=== PATIENT | female | born 1940 | race Two or more races ===

== ENCOUNTER 2025-01-26 20:34 | Emergency (ER) | payer MEDICARE, SELFPAY ==
[2025-01-26 20:37] VITALS: BMI 23.3
[2025-01-26 20:52] VITALS: BP 108/71; PULSE 96; RESP 18; TEMP 36.8; O2SAT 96
--- NOTE | 2025-01-26 21:58 | PD.EDRME ---
Rapid Medical Screening Exam RME Arrival date/time: 01/26/25 20:34 Chief Complaint: Shortness of Breath/Dyspnea Time Seen by Provider: 01/26/25 21:14 Vital signs: Vital Signs Temperature 98.2 F 01/26/25 20:52 Pulse Rate 96 01/26/25 20:52 Respiratory Rate 18 01/26/25 20:52 Blood Pressure 108/71 01/26/25 20:52 Pulse Oximetry (%) 96 01/26/25 20:52 Oxygen Delivery Method Room Air 01/26/25 20:52 Vital signs reviewed by provider: Yes RME Narrative: 84-year-old female presents to the ED with a complaint of cough, shortness of breath, weakness, malaise and fatigue. I have greeted and performed a focused initial assessment of this patient. A comprehensive ED assessment and evaluation of the patient, analysis of all test results, and completion of the medical decision making process will be conducted by additional ED providers.
--- NOTE | 2025-01-26 22:00 | XR_ITS ---
Examination: PA lateral chest 2 views TECHNIQUE: Upright PA and lateral chest 2 views Date and time: January 26, 2025 10:17 PM Comparison October 24, 2023 INDICATION: Coughing and shortness of breath this week. FINDINGS: Significant bilateral pneumonia, diffuse in the right lung and at the left base Normal heart size Prominent osteopenia IMPRESSION: Bilateral significant pneumonia
--- NOTE | 2025-01-26 22:16 | PD.EDURI ---
Upper Respiratory Inf. RME/HPI General Chief Complaint: Shortness of Breath/Dyspnea Stated Complaint: cough and sob Time Seen by Provider: 01/26/25 21:14 Arrival date/time: 01/26/25 20:34 RME / HPI RME / HPI Narrative: 84-year-old female presents to the ED with a complaint of cough, shortness of breath, weakness, malaise and fatigue. I have greeted and performed a focused initial assessment of this patient. A comprehensive ED assessment and evaluation of the patient, analysis of all test results, and completion of the medical decision making process will be conducted by additional ED providers. This section includes all my notes and documentations, including HPI, PE, and ED course. Shahzad Ricardo MD HPI: 84 y/o female with Hx of COPD presents to ED with about a week history of worsening cough, productive cough, purulent sputum, and dyspnea. No chest pain. No fever. No other complaints. ROS: All negative except as documented in HPI. Physical Exam: General: Alert and oriented. Hacking cough noted. Eyes: Conjunctivae and lids clear. ENT: No nasal congestion. Neck: Supple. Heart: RRR. Lungs: No respiratory distress. Mildly decreased air movement with wheezing and bibasilar rales. Abdomen: Soft and nontender. Skin: Warm and dry. Neuro: Alert and oriented X 3. I reviewed all diagnostic test results. My interpretation of the EKG is sinus rhythm with no acute ST?T changes. My interpretation of the chest x-ray is infiltrates. Blood tests remarkable for WBC 12.8. COVID/influenza negative. At this point, diagnoses include pneumonia. Treatment here included Tylenol with Codeine, Albuterol/Ipratroprium Duoneb, Prednisone, Rocephin, and Zithromax. Significant improvement noted. Recommend outpatient treatment. Based on my best medical judgment, made decision no further evaluation or treatment indicated at this time. Patient understands and agrees to the discharge instructions customized and printed, see below. Discharge instructions from Dr. Ricardo: --No physical exertion for 3 days to help rest the lungs. ?No smoking or exposure to smoking or pets or dust or cold or humidity. --Zithromax and cefdinir to kill the germs causing the pneumonia. --Prednisone to help decrease the swelling in the airways. -- Neb treatment every 4-6 hours for 3 days to help keep the airways open. Then as needed for cough or shortness of breath. --See a private doctor next week for recheck if not completely better. --Seek immediate medical care with worsening or with any concerns. Shahzad Ricardo MD Related Data Home Medications ?Medication ?Instructions ?Recorded ?Confirmed ergocalciferol (vitamin D2) 1,250 1 cap PO QWEEK 02/27/22 06/19/22 mcg (50,000 unit) capsule latanoprost 0.005 % eye drops 1 drp ophthalmic (eye) HS 02/27/22 06/19/22 atorvastatin 20 mg tablet 10 mg PO HS 06/19/22 06/19/22 Previous Rx's ?Medication ?Instructions ?Recorded levofloxacin 250 mg tablet 250 mg PO Q24H #10 tabs 06/22/22 promethazine-DM 6.25 mg-15 mg/5 mL 5 ml PO Q6HR PRN Cough #150 mL 06/22/22 oral syrup benzonatate 200 mg capsule 200 mg PO TID PRN cough #30 caps 06/22/24 doxycycline hyclate 100 mg capsule 100 mg PO BID #7 caps 06/22/24 hydrocodone 5 mg-acetaminophen 325 1 tab PO Q6H PRN pain #15 tabs 06/22/24 mg tablet acetaminophen 300 mg-codeine 30 mg 1 tab PO Q8H PRN pain #20 tabs 01/26/25 tablet azithromycin 500 mg tablet 500 mg PO QDAY 3 days #3 tabs 01/26/25 (Zithromax TRI-FOREIGN) cefdinir 300 mg capsule 300 mg PO BID #14 caps 01/26/25 prednisone 20 mg tablet 20 mg PO BID 3 days #6 tabs 01/26/25 Allergies Allergy/AdvReac Type Severity Reaction Status Date / Time Penicillins Allergy Severe Fatigued Verified 08/27/22 12:59 Review of Systems Review of Systems Systems Reviewed: All systems reviewed, normal except as documented Past Medical History Past Medical History CARDIAC: Positive Hypercholesterolemia RESPIRATORY: Positive Chronic Obstructive Pulmonary Disease (COPD), Bronchitis and Pneumonia GENITOURINARY: Positive Renal Disease MUSCULOSKELETAL: Positive Musculoskeletal Disorders ENT: Positive Cataracts and Glaucoma OTHER HISTORY: Positive Falls ED Exam Narrative Physical exam: Refer to HPI above Course Course Course Narrative: CXR is ordered for determining the etiology of shortness of breath. Quality Measures none Orders Category Date Time Status Bedside COVID-19 Antigen Test NOW Care 01/26/25 22:17 Active Bedside Influenza A&B Antigen Test NOW Care 01/26/25 22:17 Completed EKG (ED ONLY) *Do not use* NOW Care 01/26/25 20:40 Completed EKG (ED Only) Stat Exams 01/26/25 20:39 Ordered XR chest 2V Stat Exams 01/26/25 22:00 Completed B-Type Natriuretic Peptide Stat Lab 01/26/25 22:14 Completed CBC Stat Lab 01/26/25 22:14 Completed CMP [Comprehensive Metabolic Panel] Stat Lab 01/26/25 22:14 Completed LDH (Lactate Dehydrogenase) Stat Lab 01/26/25 22:14 Completed Lactic Acid [Lactate (Lactic Acid)] Stat Lab 01/26/25 22:14 Completed Magnesium Stat Lab 01/26/25 22:14 Completed Partial Thromboplastin Time Stat Lab 01/26/25 22:14 Completed Procalcitonin Stat Lab 01/26/25 22:14 Completed Prothrombin Time with INR Stat Lab 01/26/25 22:14 Completed RSV [Respiratory Syncytial Virus Ag] Stat Lab 01/26/25 22:00 Ordered Troponin I Stat Lab 01/26/25 22:14 Completed Urinalysis Stat Lab 01/26/25 22:00 Ordered ACETAMINOPHEN w/COD 300-30 [Tylenol w/Cod #3] Med 01/26/25 22:18 Discontinued 1 tab PO X1 ONE Albuterol/Ipratr Rt Crystal [Duoneb Rt Crystal] Med 01/26/25 22:18 Discontinued 3 ml INH X1 ONE Azithromycin Po [Zithromax PO] Med 01/26/25 23:06 Discontinued 500 mg PO X1 ONE cefTRIAXone [Rocephin] 1,000 mg Med 01/26/25 23:06 Discontinued Lidocaine 1% 20 ml [Xylocaine 1% 20 ML] 2.1 ml IM X1 predniSONE Med 01/26/25 22:18 Discontinued 40 mg PO X1 ONE Vital Signs Vital signs: Vital Signs Temperature 98.2 F 01/26/25 20:52 Pulse Rate 96 01/26/25 20:52 Respiratory Rate 18 01/26/25 20:52 Blood Pressure 108/71 01/26/25 20:52 Pulse Oximetry (%) 96 01/26/25 20:52 Oxygen Delivery Method Room Air 01/26/25 20:52 Upper Respiratory Infection MDM Narrative MDM Narrative:: Scribe Attestation: I, Preethi Pickering, am scribing for and in the presence of Dr. Ricardo. Provider Notation: Although this document has been carefully reviewed, there may still be some phonetic and other typographical errors.? These errors are purely grammatical due to imperfections in the software program and should not be construed in any way to? compromise the substance of the patient's medical care during this visit. 84 y/o female with Hx of COPD presents to ED c/o progressively worsening cough with yellow sputum x 1 day. Patient uses home oxygen and nebulizer treatment as needed. No other complaints. Patient data External records reviewed:: [facility] previous records (Reviewed prior ED records from 06/29/24. Patient was seen for Fracture of right clavicle.) Clinical information provided by:: patient Social determinants that could affect healthcare access:: none Patient has the following chronic illnesses:: Hypercholesterolemia, Chronic Obstructive Pulmonary Disease (COPD), Renal Disease, Cataracts and Glaucoma How is presenting disease/condition affected by chronic disease/condition?: exacerbated by Evaluation data The following diagnostics were reviewed and interpreted by me:: lab results, radiology exam(s) and EKG tracing(s) Lab and/or radiology exams considered but not ordered:: None Interpretation Summary: I reviewed all diagnostic test results. My interpretation of the EKG is sinus rhythm with no acute ST?T changes. My interpretation of the chest x-ray is infiltrates. Blood tests remarkable for WBC 12.8. COVID/influenza negative. Medications / Prescriptions Medications or Prescriptions considered but not ordered:: None Medication administrations:: Medication Administration History Discontinued Medications Acetaminophen/Codeine Phosphate (Acetaminophen W/Cod 300-30 Tablet) 1 tab PO X1 ONE Stop: 01/26/25 22:19 Last Admin: 01/26/25 23:09 Dose: 1 tab Documented By: HIMANSHU Albuterol/Ipratropium (Albuterol/Ipratropium (Duoneb) Rt Crystal 3 Ml Nebu) 3 ml INH X1 ONE Stop: 01/26/25 22:19 Azithromycin (Azithromycin 250 Mg Tablet) 500 mg PO X1 ONE Stop: 01/26/25 23:07 Ceftriaxone Sodium 1,000 mg/ (Lidocaine HCl 2.1 ml) 0 mg IM X1 ONE Stop: 01/26/25 23:07 Prednisone (Prednisone 20 Mg Tablet) 40 mg PO X1 ONE Stop: 01/26/25 22:19 Last Admin: 01/26/25 23:09 Dose: 40 mg Documented By: HIMANSHU Tylenol with Codeine, Albuterol/Ipratroprium Duoneb, Prednisone, Rocephin, and Zithromax. Consultations Consultation(s) initiated? (list below): No Diagnosis Upper Respiratory Differential Diagnosis: upper respiratory infection, viral infection, bronchitis, influenza, pharyngitis and other (Pneumonia) Most likely diagnosis given after review of the tests above:: Pneumonia Admission Indicated Admission indicated?: not indicated Explain why admission is indicated or not indicated:: With significant improvement, there was no indication for admission. Admission Request Was there a request for admission?: No Disposition Plan Disposition Plan: Discharge Discharge Attestation Discharge Attestation: The patient and all family members were given an opportunity to ask questions and understood the discharge instructions. Discharge instructions specifically effects, indications for sooner follow up or return to the emergency department, and the expected course of current diagnosis. Patient condition: Stable Discharge Plan Plan Patient Disposition: HOME (Self Care) Prescriptions/Referrals Prescriptions/Med Rec: New prednisone 20 mg tablet 20 mg PO BID 3 Days Qty: 6 0RF Taper: Prednisone Taper 20 mg DAILY for 2 Days and 0 Hour 10 mg DAILY for 2 Days and 0 Hour 5 mg DAILY for 7 Days and 0 Hour acetaminophen-codeine 300-30 mg tablet 1 tab PO Q8H MDD 6 PRN (Reason: pain) Qty: 20 0RF cefdinir 300 mg capsule 300 mg PO BID Qty: 14 0RF azithromycin [Zithromax TRI-FOREIGN] 500 mg tablet 500 mg PO QDAY 3 Days Qty: 3 0RF No Action ergocalciferol (vitamin D2) 1,250 mcg (50,000 unit) capsule 1 cap PO QWEEK Patient Comments: TAKE 1 CAPSULE BY MOUTH ONE TIME PER WEEK latanoprost 0.005 % drops 1 drp ophthalmic (eye) HS Patient Comments: INSTILL 1 DROP INTO RIGHT EYE AT BEDTIME DIRECTED atorvastatin 20 mg tablet 10 mg PO HS promethazine-DM 6.25-15 mg/5 mL Syrup 5 ml PO Q6HR PRN (Reason: Cough) Qty: 150 0RF levofloxacin 250 mg tablet 250 mg PO Q24H Qty: 10 0RF hydrocodone-acetaminophen 5-325 mg tablet 1 tab PO Q6H MDD 4 PRN (Reason: pain) Qty: 15 0RF doxycycline hyclate 100 mg capsule 100 mg PO BID Qty: 7 0RF benzonatate 200 mg capsule 200 mg PO TID PRN (Reason: cough) Qty: 30 0RF Referrals: Curtis Anaya MD [Primary Care Provider] - In 1 week Problem List Clinical Impression: Pneumonia Patient/Caregiver Discharge Instructions Discharge Activity: activity as tolerated Education Materials: ED Pneumonia (Adult) Additional Instructions: Discharge instructions from Dr. Ricardo: --No physical exertion for 3 days to help rest the lungs. ?No smoking or exposure to smoking or pets or dust or cold or humidity. --Zithromax and cefdinir to kill the germs causing the pneumonia. --Prednisone to help decrease the swelling in the airways. -- Neb treatment every 4-6 hours for 3 days to help keep the airways open. Then as needed for cough or shortness of breath. --See a private doctor next week for recheck if not completely better. --Seek immediate medical care with worsening or with any concerns. Print Language: Icelandic Stand Alone Forms: Debora Award Info., Patient Portal Info Letter
[2025-01-26 22:20] LABS: Lactate (Lactic Acid) 1.2 mMol/L (0.4-2.0)
[2025-01-26 22:30] LABS: Basophils # (Auto) 0.1 Thou/mm3 (0.0-0.2); Basophils % (Auto) 0 % (0-2.5); Eosinophils % (Auto) 0 % (0-10); Hematocrit 33.6 % (36.0-46.0); Hemoglobin 11.2 g/dL (12.0-16.0); Immature Granulocytes % (Auto) 1 % (0-0); Immature Granulocytes Auto 0.06 Thou/mm3 (0.00-0.00); Lymphocytes # (Auto) 1.1 Thou/mm3 (1.0-4.8); Lymphocytes % (Auto) 9 % (10-50); Mean Corpuscular HGB Conc 33.3 g/dl (31.0-37.0); Mean Corpuscular Hemoglobin 29.2 pg (25.0-35.0); Mean Corpuscular Volume 88 fL (80-100); Monocytes # (Auto) 0.8 Thou/mm3 (0.0-0.8); Monocytes % (Auto) 7 % (0-12); Neutrophils # (Auto) 10.8 Thou/mm3 (1.8-7.7); Neutrophils % (Auto) 84 % (37-80); Nucleated Red Blood Cell % 0 /100 WBC (0); Platelet Count 370 Thou/mm3 (140-440); RDW Standard Deviation 42.6 fL (36.4-46.3); Red Blood Count 3.84 Miln/mm3 (4.00-5.20); White Blood Count 12.8 Thou/mm3 (3.6-11.0)
[2025-01-26 22:38] LABS: INR 1.1 (0.9-1.3); Partial Thromboplastin Time 23.9 Seconds (22.0-36.0); Prothrombin Time 11.9 Seconds (9.0-12.2)
[2025-01-26 22:52] LABS: B-Type Natriuretic Peptide 33 pg/mL (0-100)
[2025-01-26 22:53] LABS: Alanine Aminotransferase < 7 U/L (10-49); Anion Gap 11 (7-16); Aspartate Amino Transferase 18 U/L (0-34); BUN/Creatinine Ratio 18 Ratio (12-20); Bilirubin,Total 0.6 mg/dL (0.3-1.2); Blood Urea Nitrogen 18 mg/dL (9-23); Calcium 8.5 mg/dL (8.3-10.6); Calcium (Corrected) 8.5 mg/dL (8.5-10.1); Carbon Dioxide 26.4 mMol/L (20.0-31.0); Chloride 98 mMol/L (98-107); Estimated Creatinine Clearance 37.7 mL/min (>60); Glucose 120 mg/dL (74-106); LDH (Lactate Dehydrogenase) 194 U/L (120-246); Magnesium 1.8 mg/dL (1.6-2.6); Osmolality,Calculated 273 (275-295); Sodium 135 mMol/L (136-145); Total Protein 7.8 gm/dL (5.7-8.2); Troponin I < 0.020 ng/mL (0.0-0.045); eGFR 56 See Note
[2025-01-26 22:54] LABS: Albumin/Globulin Ratio 1.1 (1.2-2.2); Alkaline Phosphatase 78 U/L (46-116); Globulin 3.8 gm/dL (2.3-3.5); Procalcitonin 0.14 ng/ml (0.0-0.49)
[2025-01-26] MEDS: predniSONE 20 MG TABLET 40 MG PO (23:09)
[2025-01-26] MEDS: ACETAMINOPHEN w/COD 300-30 TABLET 1 TAB PO (23:09)
[2025-01-26] MEDS: ALBUTEROL/IPRATROPIUM (Duoneb) RT SOL 3 ML NEBU INH (23:46)
[2025-01-26 23:50] VITALS: PULSE 112; RESP 20; O2SAT 99
[2025-01-27] MEDS: AZITHROMYCIN 250 MG TABLET 500 MG PO (00:06)
[2025-01-27] MEDS: cefTRIAXone 1,000 MG, LIDOCAINE 1% 20 ML 2.1 ML IM (00:06)
== END 2025-01-27 00:25 | disposition home or self-care (01) ==
PROVIDERS: Physician Assistant; Emergency Provider Emergency Medicine; PCP Internal Medicine
DX: J18.9 Pneumonia, unspecified organism (principal); J44.0 Chronic obstructive pulmonary disease with (acute) lower respiratory infection
CPT/HCPCS: 36415; 36600; 71046; 80053; 81001; 82803; 83605; 83615; 83735; 83880; 84145; 84484; 85025; 85610; 85730; 87400; 87502; 87634; 87811; 93005; 94640; 96372; 99283; A9270; J0696; J3490; J7512